=== PATIENT | male | born 1985 | race Caucasian/White ===

== ENCOUNTER 2018-06-02 08:43 | Emergency (ER) | payer SELFPAY ==
[~2018-06-02] VITALS: Ht 152.4 cm; Wt 59.9 kg
[2018-06-02 08:45] VITALS: BP 151/72
[2018-06-02] MEDS: KETOROLAC 30 MG/ML VIAL IM ONE (09:30)
[2018-06-02 10:58] VITALS: BP 129/88
== END 2018-06-02 10:58 | disposition home or self-care (01) ==
LOC: MED 08:43
DX: R10.9 Unspecified abdominal pain (principal); R50.9 Fever, unspecified; R03.0 Elevated blood-pressure reading, without diagnosis of hypertension
CPT/HCPCS: 74022; 96372; 99284; J1885